=== PATIENT | male | born 1980 | race Caucasian/White ===

== ENCOUNTER 2019-03-15 21:09 | Emergency (ER) | payer OTHER ==
[~2019-03-15] VITALS: Ht 180.3 cm; Wt 103.1 kg
[~2019-03-15 21:09] MED LIST: CEPH-443 PO; IBUP800T48 PO; SULF1TAB31 PO
[2019-03-15 21:12] VITALS: Ht 180.3 cm; Wt 103.1 kg
[2019-03-15] MEDS ORDERED: CEFTRIAXONE 1 GM INJ IM ONE (22:00)
[2019-03-15] MEDS ORDERED: IBUPROFEN 800 MG TAB PO ONE (22:00)
[2019-03-15 22:48] VITALS: BP 124/71; PULSE 80; RESP 18
== END 2019-03-15 22:49 | disposition home or self-care (01) ==
LOC: FTE 21:09
DX: L02.416 Cutaneous abscess of left lower limb (principal); L03.116 Cellulitis of left lower limb
CPT/HCPCS: 96372; J0696; Z7502; Z7610